=== PATIENT | male | born 2000 | race Caucasian/White ===

== ENCOUNTER 2022-04-09 16:30 | Emergency (ER) | payer OTHER ==
[~2022-04-09 16:30] MED LIST: KEPPRA500 MG PO
[2022-04-09 17:37] LABS: HEMOGLOBIN 14.5 gm/dl (14.0-17.5); RED BLOOD COUNT 4.89 M/UL (4.20-5.50); WHITE BLOOD COUNT 10.4 K/UL (4.5-11.0)
[2022-04-09 17:58] LABS: BUN/CREATININE RATIO 14 (0-10)
== END 2022-04-09 19:57 | disposition home or self-care (01) ==
LOC: ER1 16:30
DX: G40.909 Epilepsy, unspecified, not intractable, without status epilepticus (principal); S00.81XA Abrasion of other part of head, initial encounter; F17.290 Nicotine dependence, other tobacco product, uncomplicated; Z79.899 Other long term (current) drug therapy; X58.XXXA Exposure to other specified factors, initial encounter
CPT/HCPCS: 70450; 80053; 81001; 85025; 99284; J1953